=== PATIENT | male | born 1975 | race Hispanic/Latino ===

== ENCOUNTER 2021-07-11 05:04 | Day surgery (SDC) | payer SELFPAY ==
[2021-07-11] VITALS (11 sets, daily range): BP systolic 96–130; BP diastolic 71–87; PULSE 68–95; RESP 11–18; TEMP 36.2–37.4; O2SAT 97–100
--- NOTE | ~2021-07-11 | CT_ITS ---
EXAMINATION: CT abdomen pelvis wo con DATE: 07/11/2021 06:43 INDICATION: Epigastric abdominal pain, onset at 1600 hours TECHNIQUE: Computed tomography (CT) of the abdomen and pelvis was performed without intravenous contr ast. Automated exposure control and iterative reconstruction technique were employed. Exam dose: 434 .32 mGy-cm total exam DLP. COMPARISON: None. FINDINGS: There is minimal bilateral lower lobe dependent atelectasis. Normal heart size. No pericard ial or pleural effusion. The liver, gallbladder, bile ducts, spleen, pancreas, pancreatic duct, and adrenal glands, kidneys, u reters and urinary bladder are unremarkable. Normal caliber of the abdominal aorta. No intraperitoneal or retroperitoneal or pelvic mass lesion or adenopathy or ascites. Minimal diverticulosis of the ascending colon. No bowel obstruction or intraperitoneal free air. Included skeletal structures are unremarkable. No suspicious osteolytic or osteoblastic lesions. IMPRESSION: Minimal diverticulosis of ascending colon Reviewed, dictated and finalized at [facility]. Reviewed, dictated and finalized at [facility].
[2021-07-11 05:35] LABS: Basophils Absolute Auto 0.1 K/mm3 (0.0-0.1); Basophils Percent Auto 0.5 % (0.2-1.2); Eosinophils Absolute Auto 0.6 K/mm3 (0-0.3); Eosinophils Percent Auto 3.9 % (0-4.4); Hematocrit 48.4 % (42.0-52.0); Hemoglobin 15.9 g/dL (14.0-18.0); Immature Granulocyte Absolute 0.08 K/mm3 (0.00-0.031); Immature Granulocyte Percent A 0.5 % (0-0.5); Lymphocytes Absolute Auto 2.03 K/mm3 (0.9-3.2); Lymphocytes Percent Auto 13.7 % (18.3-44.2); Mean Corpuscular HGB Conc 32.9 g/dl (32-36); Mean Corpuscular Hemoglobin 26.8 pg (26-34); Mean Corpuscular Volume 81.6 fl (80-100); Mean Platelet Volume 10.1 fl (7.4-10.4); Monocytes Absolute Auto 0.6 K/mm3 (0.1-0.6); Monocytes Percent Auto 4.2 % (2.6-8.5); Neutrophils Absolute Auto 11.5 K/mm3 (1.3-6.7); Neutrophils Percent Auto 77.2 % (45.5-73.1); Platelet Count Result 319 k/mm3 (150-375); Red Blood Count 5.93 M/mm3 (4.6-6.20); Red Cell Distribution Width 13.7 % (11.5-14.5); White Blood Count 14.8 K/mm3 (4.5-10.0)
[2021-07-11] MEDS: SODIUM CHLORIDE 0.9% IV 1,000 ML 999 ML IV CONT (05:51)
[2021-07-11] MEDS: MORPHINE SULFATE (*CRX) 4 MG/ML INJ IV PUSH ×2 (05:52→07:24)
[2021-07-11] MEDS: ONDANSETRON INJ 4 MG/2 ML VIAL IV PUSH (05:52)
[2021-07-11 06:13] LABS: Alanine Aminotransferase 37 U/L (6-50); Alkaline Phosphatase 92 U/L (38-126); Anion Gap 9 mmol/L (8-16); Aspartate Amino Transferase 52 U/L (17-59); Bilirubin,Total 0.6 mg/dL (0.2-1.3); Blood Urea Nitrogen 10 mg/dL (9-20); Calcium 8.3 mg/dL (8.4-10.2); Carbon Dioxide 26 mmol/L (22-30); Chloride 103 mmol/L (98-107); Estimated Glomerular Filt Rate > 60; Glucose 126 mg/dL (65-110); Lipase 102 U/L (23-300); Potassium 3.4 mmol/L (3.4-5.0); Sodium 138 mmol/L (137-145)
--- NOTE | 2021-07-11 06:20 | ED.ABDPAIN ---
HPI - Abdominal Pain General Chief Complaint: Abdominal Pain <Papa Trimble MD - Last Filed: 07/11/21 06:24> Stated Complaint: Epigastric pain, abd pain <Papa Trimble MD - Last Filed: 07/11/21 06:24> Time Seen by Provider: 07/11/21 05:14 <Papa Trimble MD - Last Filed: 07/11/21 06:24> History of Present Illness HPI narrative: Patient is a 46-year-old male who presents ER with epigastric pain. Ongoing over the last day. Has difficulty reporting quality of pain but it is located in the epigastrium. No radiation. Mild nausea but no vomiting. No diarrhea or constipation. No known sick contacts. No abdominal distention. Denies fevers or chills or sweats. Pain is worse anytime he is walking around. No no association with eating. <Papa Trimble MD - Last Filed: 07/11/21 06:24> Related Data Allergies/Adverse Reactions: Allergies Allergy/AdvReac Type Severity Reaction Status Date / Time No Known Allergies Allergy Verified 07/11/21 05:05 <Papa Trimble MD - Last Filed: 07/11/21 06:24> Review of Systems Review of Systems: All systems reviewed & are unremarkable except as noted in HPI and below <Papa Trimble MD - Last Filed: 07/11/21 06:24> Constitutional: Constitutional: Denies chills, Denies fatigue and Denies fever(s) <Papa Trimble MD - Last Filed: 07/11/21 06:24> ENT: Denies nasal congestion <Papa Trimble MD - Last Filed: 07/11/21 06:24> Cardiovascular: Cardiovascular: Denies chest pain and Denies radiating jaw, neck or arm pain <Papa Trimble MD - Last Filed: 07/11/21 06:24> Respiratory: Respiratory: Denies cough and Denies dyspnea <Papa Trimble MD - Last Filed: 07/11/21 06:24> Gastrointestinal: Gastrointestinal: Reports abdominal pain, Denies bloating, Denies constipation, Denies diarrhea, Reports nausea and Denies vomiting <Papa Trimble MD - Last Filed: 07/11/21 06:24> PMFSH Past Medical History Medical History: Medical History (Updated 07/11/21 @ 09:54 by Miguelina Thapa MD) Healthy adult male <Papa Trimble MD - Last Filed: 07/11/21 06:24> Surgical History Surgical History: Surgical History (Updated 07/11/21 @ 06:22 by Papa Trimble MD) No history of previous surgery <Papa Trimble MD - Last Filed: 07/11/21 06:24> Social History Social History: Social History (Updated 07/11/21 @ 06:22 by Papa Trimble MD) Smoking status: Never smoker <Papa Trimble MD - Last Filed: 07/11/21 06:24> Exam Narrative: GENERAL: Well-appearing, well-nourished, and in no acute distress. HEAD: Normocephalic, atraumatic. EYES: PERRL and EOMI. CHEST: Clear to auscultation. No respiratory distress. HEART: Regular rate and rhythm. Normal peripheral pulses. ABDOMEN: Soft, mild epigastric discomfort without guarding, nondistended. EXTREMITIES: Normal range of motion. No edema. SKIN: Warm, dry, no rash. NEURO: Alert and oriented x3. PSYCH: Normal mood and affect. <Papa Trimble MD - Last Filed: 07/11/21 06:24> Course Course Emergency Course: CT abdomen pelvis does show appendicitis, this is discussed with the surgeon on-call Dr. Weldon and the patient, abx started all questions answered with interpretor. Patient will be going to the OR. <Miguelina Thapa MD - Last Filed: 07/11/21 09:54> Vital Signs Vital signs: Vital Signs Temperature 97.1 F L 07/11/21 05:06 Pulse Rate 76 07/11/21 05:06 Respiratory Rate 17 07/11/21 05:06 Blood Pressure 96/77 L 07/11/21 05:06 Pulse Oximetry 100 07/11/21 05:06 Oxygen Delivery Room Air 07/11/21 05:06 Temperature 97.1 F L 07/11/21 05:06 Pulse Rate 75 07/11/21 08:32 Respiratory Rate 18 07/11/21 08:32 Blood Pressure 113/87 07/11/21 08:32 Pulse Oximetry 98 07/11/21 08:32 Oxygen Delivery Room Air 07/11/21 05:06 <Papa Trimble MD - Last Filed: 07/11/21 06:24> Vital Signs
[2021-07-11] MEDS: DICYCLOMINE HCL INJ 20 MG/2 ML VIAL IM (07:24)
[2021-07-11] MEDS: metroNIDAZOLE 500 MG/ISO 100ML 500 MG/100 ML BAG 100 MG IVPB (08:49)
[2021-07-11] MEDS: LACTATED RINGERS 1,000 ML 999 ML IV CONT (08:49)
--- NOTE | 2021-07-11 08:54 | PC.NURSE ---
ERP at bedside using Stratus to assist with pt understanding of disease process. Pt is aware that surgeon will review scan and see pt to determine plan of care.
[2021-07-11 09:00] LABS: INR 1.1; Partial Thromboplastin Time 32.7 SECONDS (22.3-36.8); Prothrombin Time 13.9 Seconds (11.1-14.7)
[2021-07-11] MEDS: LACTATED RINGERS 1,000 ML 30 ML IV CONT (10:30)
--- NOTE | 2021-07-11 11:00 | WPDHPUPDATE1 ---
History and Physical Update Update Date/Time: 07/11/21 11:00 History and Physical has been reviewed, including an updated exam of the patient. There are NO changes in the patient's condition. Risks, benefits, and alternatives have been discussed and questions answered. Patient agrees to proceed with procedure.
--- NOTE | 2021-07-11 11:00 | PM.IMHP ---
H&P: HPI History of Present Illness Date/Time: 07/11/21 11:00 Chief Complaint: Epigastric pain Narrative: This is a 46-year-old Syriac-speaking male who presented to the emergency department this morning with epigastric abdominal pain. Interpreting services used to discussed with the patient. He began having pain overnight. He has never experienced anything like this before. He denies any nausea, vomiting, fevers, or change in bowel habits. He has never had any surgery before. Review of Systems Review of Systems: All systems reviewed & are unremarkable except as noted in HPI and below Constitutional: Constitutional: Denies chills and Denies fever(s) Eyes: Eyes: Denies change in vision ENT: Denies hearing loss, Denies neck pain and Denies sore throat Cardiovascular: Cardiovascular: Denies chest pain and Denies dyspnea Respiratory: Respiratory: Denies cough, Denies dyspnea and Denies wheezing Gastrointestinal: Gastrointestinal: Reports as per HPI Genitourinary: Genitourinary: Denies hematuria and Denies dysuria Musculoskeletal: Musculoskeletal: Denies arthralgias, Denies joint swelling and Denies neck pain Allergic/Immunologic: Allergic/Immunologic: Denies wheezing [facility] Past Medical History Medical History (Updated 07/11/21 @ 09:54 by Miguelina Thapa MD) Healthy adult male Surgical History Surgical History (Updated 07/11/21 @ 06:22 by Papa Trimble MD) No history of previous surgery Social History Social History (Updated 07/11/21 @ 06:22 by Papa Trimble MD) Smoking status: Never smoker Meds Home Medications and Allergies Home Medications Medication Instructions Recorded Confirmed Type No Home Medications 07/11/21 07/11/21 History Allergies Allergy/AdvReac Type Severity Reaction Status Date / Time No Known Allergies Allergy Verified 07/11/21 05:05 Vital Signs Vital Signs - 24 hr 07/11/21 05:06 07/11/21 07:13 07/11/21 07:37 Temperature 36.2 C L Pulse Rate 76 68 73 Respiratory Rate 17 18 18 Blood Pressure 96/77 L 117/81 114/82 Pulse Oximetry 100 98 97 Oxygen Delivery Room Air 07/11/21 08:32 Temperature Pulse Rate 75 Respiratory Rate 18 Blood Pressure 113/87 Pulse Oximetry 98 Oxygen Delivery Exam Const: General: alert; No acute distress Orientation/consciousness: patient oriented x3 Limitations: no limitations HENMT: Head: normocephalic and atraumatic Ears: hearing grossly normal bilaterally General nose exam: Normal external nose present and Normal nares present Mouth: Yes Normal oral and palatal mucosa present and Yes moist mucous membranes Eyes: General: appearance normal, both eyes and all related structures Conjunctivae: conjunctivae normal Sclera: sclerae normal Pupils: Equal, round and reactive pupils present EOM: EOMs intact bilaterally Neck: Neck: normal visual inspection, full ROM, no lymphadenopathy, supple and no JVD Lymphatic: no lymphadenopathy noted Chest: Chest palpation & inspection: normal inspection of the chest Resp: Effort & Inspection: normal respiratory effort and able to speak in complete sentences Auscultation: clear to auscultation bilaterally Percussion: percussion normal Cardio: Jugular venous distension: no JVD Rate: regular rate Rhythm: regular rhythm Heart sounds: S1 normal heart sound present and S2 normal heart sound present Peripheral pulses: Peripheral pulses 2+ throughout GI: Inspection: normal to inspection GI Palp: Yes Soft to palpation, Yes Tenderness to palpation present (GI) (Right lower quadrant), Yes Guarding due to palpation present (GI) (Right lower quadrant), No Hernia present and No Rebound tenderness present Percussion: Yes normal to percussion Auscultation: normal bowel sounds : General: Yes no CVA tenderness Back/Spine/Pelvis: Back: no CVA tenderness Skin: General skin exam: normal color and dry skin Neuro: General: patient oriented x3, gait normal, moves all extrem
--- NOTE | 2021-07-11 12:03 | W.PM.PROC2 ---
Procedure Note - Detailed Date of Procedure 07/11/21 Pre-op Diagnosis Acute appendicitis Post-op Diagnosis Same Procedure Performed Laparoscopic appendectomy Surgeon Walter Weldon, DO Anesthesia General and Local (0.5% bupivicaine with epinephrine) Indications This is a 46-year-old man who presented to the emergency department this morning with epigastric pain that started last night. He denies any fevers or chills. He was noted to have an elevated white blood count and CT showed evidence of acute appendicitis. Discussions were made with the patient about treatment options and decision was made to proceed with laparoscopic appendectomy, possible open. Findings Laparoscopic appendectomy was performed. The patient's appendix appeared dilated and inflamed, but there was no evidence of perforation or abscess. The base of the appendix appeared healthy and viable. The appendix was removed and sent to the lab for pathology. A careful examination of the remainder of the abdominal cavity showed no other abnormalities. The right lower quadrant and pelvis were irrigated with sterile saline. Description of Procedure Procedure as well as risks, benefits, and alternatives were explained to the patient. The patient agreed to proceed. Written consent was obtained and placed in chart prior to procedure. The patient was brought back to surgical suite. He was placed supine on operating table. Time-out was done to confirm the patient and procedure. The patient was then intubated by the Anesthesia Department. His abdomen was prepped and draped in sterile fashion using chlorhexidine prep. A 5 mm incision was made just to the left of the patient's umbilicus and a 5 mm Optiview trocar was advanced through the abdominal layers under direct visualization. Once inside the peritoneal cavity, carbon dioxide insufflation was used to create a pneumoperitoneum. The camera was inserted and the abdomen was inspected. No immediate abnormalities were identified. The patient was then placed in slight Trendelenburg position and rotated to the left. A 5 mm incision was made in the suprapubic region in midline and a 5 mm trocar was inserted under direct visualization. A 12 mm incision was made in the left lower quadrant and a 12 mm trocar was inserted under direct visualization. The right lower quadrant was carefully inspected. The cecum was identified and then this was traced back to the appendix. The appendix was identified and grasped at the mesoappendix and lifted anteriorly. Careful blunt dissection was carried out at the base of the appendix through the mesoappendix using a [place] grasper. An Endo-SINDHU 45 mm blue load stapler was then advanced across the base of the appendix and clamped and fired. A white reload was then clamped across the mesoappendix and fired. This freed up our appendix completely. It was then placed in an EndoCatch bag and removed through the left lower quadrant port. The staple lines were then inspected. Hemostasis appeared adequate and the staple lines appeared secure. The area was then irrigated with sterile saline. The pelvis was then carefully inspected and irrigated with sterile saline as well and the remainder of the abdomen was carefully inspected. The patient was then flattened out in bed. One final inspection was made around the abdominal cavity and no other abnormalities were seen. The left lower quadrant port was removed and a Eduardo-Cheryl cone was used to approximate the fascia with an 0 Vicryl simple interrupted suture. The remaining ports were then removed under direct visualization. The camera was removed and the pneumoperitoneum was released. 0.5% bupivacaine with epinephrine was infiltrated locally around each of the incisions. The skin of the incisions was then approximated using 4-0 Monocryl subcuticular suture and Exofin glue was applied on top. The patient was then awakened from anesthesia, extubated, and transferred to Re
--- NOTE | 2021-07-11 12:33 | SUR.PHASEI ---
1228-Patient arousing, airway removed, stratus services initiated-[facility] #[id number] utilized. Patient denies pain, monitors explained, no questions at this time-session ended to allow pt to rest.
--- NOTE | 2021-07-11 14:20 | SUR.PHASEII ---
[id number] [employer] OPERATOR SERVICE UTILIZED WITH [facility] #[id number] FOR DISCHARGE INSTRUCTIONS AND PLAN OF CARE. PATIENT AND FRIEND PRESENT. DISCHARGE PACKET WAS PRINTED IN [place] AND PRESENTED TO PT AND FRIEND-SOME INFORMATION PRINTED ONLY IN [place]. STAFF UTILIZES [facility] PRINTED DISCHARGE PACKET WITH INTERPRETOR FOR TRANSLATION, VALIDATION, AND UNDERSTANDING OF PATIENT'S [place] PACKET. TIME FOR QUESTIONS GIVEN, QUESTIONS ANSWERED THROUGH [facility] TO PT/FRIEND SATISFACTION.
== END 2021-07-11 14:00 | disposition home or self-care (01) ==
LOC: ANHED 09:54 → ANHSURGERY 09:56
PROVIDERS: Emergency Medicine; Emergency Provider Emergency Medicine; Visit Provider Surgery
PROC: 0DTJ4ZZ Resection of Appendix, Percutaneous Endoscopic Approach (ICD-10-PCS; CPT 44970; principal; 2021-07-11 11:00)
DX: K35.30 Acute appendicitis with localized peritonitis, without perforation or gangrene (principal)
CPT/HCPCS: 44970; 36415; 74176; 80053; 83690; 85025; 85610; 85730; 86850; 86900; 86901; 88304; 96361; 96365; 96366; 96372; 96375; 96376; 99285; J0330; J0500; J1100; J2250; J2270; J2405; J2704; J3010; J7030; J7120